=== PATIENT | female | born 1950 | race Caucasian/White ===

== ENCOUNTER → 2016-11-03 | Outpatient (CLI) | payer BC ==
--- NOTE | 2016-11-03 14:40 | P.HPBAR ---
Bariatric H&P - History & Physicial H&P Date: 11/03/16 History & Physicial: Visit/CC: Sleeve follow-Up Patient initial contact: Initial weight: 142.428 kg Initial weight in pounds: 314.00 Height: 5 ft 5 in Initial BMI: 52.2 Last weight: Current weight: 103.958 kg Current weight in pounds: 229.00 Current BMI: 38.1 [place] body weight (based on NIH guidelines): 56.699 kg Excess body weight loss: 44.9% The patient is a 66 year-old F who presents for Bariatric Assessment. Patient presents for sleeve follow-up. She has lost approximately 87 pounds. She has some mild GERD symptoms. Past Medical History Past Medical History: Diabetes Mellitus, Hyperlipidemia, Hypertension Additional Past Medical History / Comment(s): DM and HTN resolved after sleeve surgery. History of Any Multi-Drug Resistant Organisms: None Reported Past Surgical History: Bariatric Surgery, Orthopedic Surgery Additional Past Surgical History / Comment(s): gastric sleeve, r knee, r elbow, l shoulder, Past Anesthesia/Blood Transfusion Reactions: No Reported Reaction Past Psychological History: No Psychological Hx Reported Smoking Status: Never smoker Past Alcohol Use History: None Reported Past Drug Use History: None Reported Surgical - Exam Vital Signs Temp Pulse Resp BP 97.4 F L 55 L 16 123/73 11/03/16 14:14 11/03/16 14:14 11/03/16 14:14 11/03/16 14:14 - General well developed, no distress - Eyes PERRL - ENT normal pinna - Neck no masses - Respiratory normal expansion - Cardiovascular Rhythm: regular - Abdomen Abdomen: soft, non tender Bariatric Assessment & Plan Plan: The patient doing well from her sleeve gastrectomy. Her GERD symptoms will be monitored. She was currently taking was all. She'll follow-up in 2 months. Bariatric Checklist Checklist: Plan: Checklist: EGD: 1. Hiatal hernia: 2. H. Pylori: HgbA1c: Vitamin D: Smoking: Never smoker Primary care physician referral: Psychiatry clearance: Cardiology clearance: Sleep study: Diet journal: VTE risk score: VTE risk level: Rehab needs at discharge:
== END | disposition home or self-care (01) ==
CPT/HCPCS: 99201

== ENCOUNTER → 2017-01-26 | Outpatient (CLI) | payer BC ==
[2017-01-26 13:22] VITALS: BP 147/60; PULSE 51; TEMP 98.4
[2017-01-26 13:52] LABS: CH 31.7; CHCM 33.1; HCT 41.6 % (34.0-46.0); HDW 2.52; HGB 13.6 gm/dL (11.4-16.0); MCH 31.5 pg (25.0-35.0); MCHC 32.7 g/dL (31.0-37.0); MCV 96.1 fL (80.0-100.0); Mean Platelet Volume 7.6; RBC 4.33 m/uL (3.80-5.40); RDW 13.1 % (11.5-15.5); WBC 6.3 k/uL (3.8-10.6)
[2017-01-26 14:16] LABS: ALT 39 U/L (9-52); AST 25 U/L (14-36); Alkaline Phosphatase 68 U/L (38-126); Anion Gap 11 mmol/L; Blood Urea Nitrogen 19 mg/dL (7-17); Calcium 10.4 mg/dL (8.4-10.2); Carbon Dioxide 31 mmol/L (22-30); Chloride 101 mmol/L (98-107); Glucose 92 mg/dL (74-99); Non-African American GFR(MDRD) >60 (>60 ml/min/1.73 sqM); Phosphorous 4.4 mg/dL (2.5-4.5); Potassium 4.1 mmol/L (3.5-5.1); Sodium 143 mmol/L (137-145); Total Bilirubin 0.8 mg/dL (0.2-1.3); Total Protein 7.6 g/dL (6.3-8.2)
[2017-01-26 14:57] LABS: Iron 98 ug/dL (37-170)
--- NOTE | 2017-01-26 15:18 | P.HPBAR ---
Bariatric H&P - History & Physicial H&P Date: 01/26/17 History & Physicial: Visit/CC: Patient initial contact: Initial weight: 142.428 kg Initial weight in pounds: 314.00 Height: 5 ft 5 in Initial BMI: Last weight: Current weight: 102.603 kg Current weight in pounds: Current BMI: [place] body weight (based on NIH guidelines): Excess body weight loss: The patient is a 66 year-old F who presents for Bariatric Assessment. Patient presents today for sleeve gastrectomy follow-up. She has lost approximately 90 pounds since surgery. Patient states that her GERD symptoms have improved. She is currently taking Prilosec for her GERD. Her hypertension is resolved and her arthritis has also improved. Past Medical History Past Medical History: Diabetes Mellitus, Hyperlipidemia, Hypertension Additional Past Medical History / Comment(s): DM and HTN resolved after sleeve surgery. History of Any Multi-Drug Resistant Organisms: None Reported Past Surgical History: Bariatric Surgery, Orthopedic Surgery Additional Past Surgical History / Comment(s): gastric sleeve, r knee, r elbow, l shoulder, Past Anesthesia/Blood Transfusion Reactions: No Reported Reaction Past Psychological History: No Psychological Hx Reported Smoking Status: Never smoker Past Alcohol Use History: None Reported Past Drug Use History: None Reported Surgical - Exam Vital Signs Temp Pulse BP 98.4 F 51 L 147/60 01/26/17 13:11 01/26/17 13:11 01/26/17 13:11 - General well developed, no distress - Abdomen Abdomen: soft, non tender Results - Labs 01/26/17 13:31 01/26/17 13:31 Abnormal Lab Results - Last 24 Hours (Table) 01/26/17 Range/Units 13:31 Carbon Dioxide 31 H (22-30) mmol/L BUN 19 H (7-17) mg/dL Calcium 10.4 H (8.4-10.2) mg/dL Diabetes panel 01/26/17 Range/Units 13:31 Sodium 143 (137-145) mmol/L Potassium 4.1 (3.5-5.1) mmol/L Chloride 101 (98-107) mmol/L Carbon Dioxide 31 H (22-30) mmol/L BUN 19 H (7-17) mg/dL Creatinine 0.60 (0.52-1.04) mg/dL Glucose 92 (74-99) mg/dL Calcium 10.4 H (8.4-10.2) mg/dL AST 25 (14-36) U/L ALT 39 (9-52) U/L Alkaline Phosphatase 68 (38-126) U/L Total Protein 7.6 (6.3-8.2) g/dL Albumin 4.6 (3.5-5.0) g/dL Thyroid panel 01/26/17 Range/Units 13:31 TSH 0.884 (0.465-4.680) mIU/L Calcium panel 01/26/17 Range/Units 13:31 Calcium 10.4 H (8.4-10.2) mg/dL Phosphorus 4.4 (2.5-4.5) mg/dL Albumin 4.6 (3.5-5.0) g/dL Pituitary panel 01/26/17 Range/Units 13:31 Sodium 143 (137-145) mmol/L Potassium 4.1 (3.5-5.1) mmol/L Chloride 101 (98-107) mmol/L Carbon Dioxide 31 H (22-30) mmol/L BUN 19 H (7-17) mg/dL Creatinine 0.60 (0.52-1.04) mg/dL Glucose 92 (74-99) mg/dL Calcium 10.4 H (8.4-10.2) mg/dL TSH 0.884 (0.465-4.680) mIU/L Adrenal panel 01/26/17 Range/Units 13:31 Sodium 143 (137-145) mmol/L Potassium 4.1 (3.5-5.1) mmol/L Chloride 101 (98-107) mmol/L Carbon Dioxide 31 H (22-30) mmol/L BUN 19 H (7-17) mg/dL Creatinine 0.60 (0.52-1.04) mg/dL Glucose 92 (74-99) mg/dL Calcium 10.4 H (8.4-10.2) mg/dL Total Bilirubin 0.8 (0.2-1.3) mg/dL AST 25 (14-36) U/L ALT 39 (9-52) U/L Alkaline Phosphatase 68 (38-126) U/L Total Protein 7.6 (6.3-8.2) g/dL Albumin 4.6 (3.5-5.0) g/dL Bariatric Assessment & Plan Plan: Status post sleeve gastric and. Patient is doing quite well. She is a great weight loss. Patient will follow-up in 3 months. Her GERD symptoms are being treated with omeprazole. Bariatric Checklist Checklist: Plan: Checklist: EGD: 1. Hiatal hernia: 2. H. Pylori: HgbA1c: Vitamin D: Smoking: Never smoker Primary care physician referral: Psychiatry clearance: Cardiology clearance: Sleep study: Diet journal: VTE risk score: VTE risk level: Rehab needs at discharge:
[2017-01-26 15:45] LABS: Vitamin B12 719 pg/mL (239-931)
[2017-01-26 18:11] LABS: % Iron Saturation 29.3 % (20-50); Total Iron Binding Capacity 335 ug/dL (265-497)
== END | disposition home or self-care (01) ==
LOC: BARWHC3 12:51
PROVIDERS: ATTEND Surgery
DX: Z48.815 Encounter for surgical aftercare following surgery on the digestive system (principal); E66.01 Morbid (severe) obesity due to excess calories; E55.9 Vitamin D deficiency, unspecified; K21.9 Gastro-esophageal reflux disease without esophagitis; M19.90 Unspecified osteoarthritis, unspecified site; Z98.84 Bariatric surgery status; Z79.899 Other long term (current) drug therapy
CPT/HCPCS: 80053; 82306; 82607; 82728; 83540; 83550; 83735; 84100; 84425; 84443; 84590; 85027; 99211